=== PATIENT | male | born 1985 | race African-American/Black ===

== ENCOUNTER 2021-11-28 18:39 | Emergency (ER) | payer SELFPAY ==
[~2021-11-28] VITALS: Ht 180.3 cm; Wt 74.4 kg
--- NOTE | 2021-11-28 19:48 | NUR ---
PT BIBS C/O DIARRHEA AND VOMITTING X2 DAYS "UNABLE TO HOLD ANYTHING DOWN". PATIENT ALERT AND ORIENTED X4. AMBULATORY WITH NON LABORED BREATHING. PLACED IN BED 01 ON MONITOR AND POX.
--- NOTE | 2021-11-28 20:12 | NUR ---
SHANE MEMBRENO AT BEDSIDE.
[2021-11-28] MEDS ORDERED: ONDANSETRON HCL/PF 4 MG/2 ML VIAL ONE (20:15)
[2021-11-28] MEDS ORDERED: IV NS 0.9% 1,000 ML IV ONE (20:30)
[2021-11-28] MEDS ORDERED: ONDANSETRON HCL/PF 4 MG/2 ML VIAL IV ONE (20:30)
[2021-11-28 20:47] LABS: BASOPHILS % (AUTO) 0.3 % (0.0-2.0); EOSINOPHILS % (AUTO) 0.9 % (0.0-6.0); HEMATOCRIT 47 % (39-51); HEMOGLOBIN 15.9 g/dL (13.5-17.5); LYMPHOCYTES # (AUTO) 0.5 K/uL (0.8-4.8); MEAN CORPUSCULAR HGB CONC 34 g/dl (31.0-36.0); MEAN CORPUSCULAR VOLUME 87 fL (80-96); MONOCYTES # (AUTO) 0.8 K/uL (0.1-1.30); MONOCYTES % (AUTO) 18.9 % (2.0-12.0); NEUTROPHILS % (AUTO) 67.9 % (43.0-81.0); PLATELET COUNT (AUTO) 114 K/uL (150-450); RED BLOOD CELL COUNT(AUTO) 5.43 MIL/uL (4.5-6.0); WHITE BLOOD COUNT (AUTO) 4.5 K/uL (4.3-11.0)
[2021-11-28 21:02] LABS: CALCIUM, SERUM 8.8 mg/dL (8.5-10.1); CREATININE 1.4 mg/dL (0.6-1.3); POTASSIUM 3.1 mmol/L (3.5-5.1)
[2021-11-28 21:24] VITALS: BP 129/87
[2021-11-28 21:27] LABS: EOSINOPHILS % (MANUAL) 1 % (0-4); LYMPHOCYTES % (MANUAL) 11 % (16-48); MONOCYTES % (MANUAL) 15 % (0-11.0); NEUTROPHILS % (MANUAL) 73 (42-76)
[2021-11-28] MEDS ORDERED: POTASSIUM CHLORIDE 20 MEQ TAB.PRT.SR PO ONE ×2 (21:38→22:00)
[2021-11-28] MEDS ORDERED: ONDA4TAB5 PO (21:44)
--- NOTE | 2021-11-28 21:53 | NUR ---
Patient discharged to home in stable condition. Rx and Written and verbal after care instructions given. Patient verbalizes understanding of instruction.
== END 2021-11-28 21:53 | disposition home or self-care (01) ==
LOC: ER 18:41
DX: K52.9 Noninfective gastroenteritis and colitis, unspecified (principal); Z60.2 Problems related to living alone
CPT/HCPCS: 36415; 80048; 83690; 85007; 85025; 96361; 96374; 99283; J2405; J7030